=== PATIENT | male | born 1965 | race Caucasian/White ===

== ENCOUNTER 2018-11-05 10:48 | Emergency (ER) | payer OTHER ==
[~2018-11-05] VITALS: Ht 172.7 cm; Wt 72.7 kg
[2018-11-05] MEDS ORDERED: HYDR-3713 (11:00)
[2018-11-05] MEDS ORDERED: CEPH500C (11:00)
[2018-11-05 12:10] VITALS: BP 148/73
== END 2018-11-05 12:26 | disposition home or self-care (01) ==
LOC: M ED 10:48
DX: S92.902A Unspecified fracture of left foot, initial encounter for closed fracture (principal); W10.9XXA Fall (on) (from) unspecified stairs and steps, initial encounter; Y92.019 Unspecified place in single-family (private) house as the place of occurrence of the external cause